=== PATIENT | female | born 1970 | race Caucasian/White ===

== ENCOUNTER → 2016-10-27 | Outpatient (CLI) | payer BC ==
--- NOTE | 2016-10-28 09:14 | NM ---
EXAM DESCRIPTION: NM BONE SCAN WHOLE BODY CLINICAL HISTORY: 46 y/o F, THORASIC SPINE PAIN COMPARISON: December 21, 2012 TECHNIQUE: Whole body bone scan was performed after the patient was administered 28 mCi technetium 99 M MDP. FINDINGS: There is focal uptake noted within the thoracic spine at the level of what is likely T12 through L3. No additional abnormal uptake within the osseous structures or soft tissues on today's study. IMPRESSION: Subtle increase in radiotracer activity within the region of patient's multilevel fusion from T10 through L3. This can be seen in setting of hardware loosening. Recommend radiographs for correlation. No additional abnormal uptake. Electronically signed by: Ney Etienne MD 10/28/2016 09:13
== END | disposition home or self-care (01) ==
LOC: NM 09:12
PROVIDERS: ATTEND Family Medicine
DX: M54.6 Pain in thoracic spine (principal)

== ENCOUNTER → 2017-01-11 | Outpatient (CLI) | payer BC, SELFPAY ==
--- NOTE | 2017-01-12 11:12 | MRI ---
EXAM DESCRIPTION: Lumbar Spine w/o Contrast CLINICAL HISTORY: LUMBER NON UNION COMPARISON: None Available. TECHNIQUE: MRI of the lumbar spine is performed according to our usual protocol with axial and sagittal multi sequence imaging. FINDINGS: Patient is status post fusion from the lower thoracic spine through L3. Marrow signal and vertebral body height are unremarkable. The conus is poorly visualized. L1-2: Thecal sac is widely patent. No spinal canal or neuroforaminal narrowing. L2-3: Thecal sac is widely patent. No spinal canal or neuroforaminal narrowing. L3-4: Thecal sac is widely patent. No spinal canal or neuroforaminal narrowing. L4-5: Mild disc desiccation and height loss. 2 mm circumferential disc bulge. No spinal canal or neuroforaminal narrowing. L5-S1: Moderate disc desiccation and height loss. Endplate edema noted. Right lateral recess annular tear. The midline diameter of the spinal canal is adequate at 15 mm. Mild bilateral neuroforaminal narrowing, right greater left. IMPRESSION: 1. Today's exam demonstrates multilevel fusion through L3. 2. Today's exam demonstrates no spinal canal narrowing at any level. 3. There is disc desiccation at L4-5 and L5-S1. This is most pronounced at L5-S1. In addition there is an annular tear at L5-S1. 4. Bilateral neuroforaminal narrowing noted only at one level, L5-S1. Electronically signed by: Ney Etienne MD 01/12/2017 11:12 AM CDT
--- NOTE | 2017-01-12 11:34 | CT ---
EXAM DESCRIPTION: Thoracic Spine CLINICAL HISTORY: 46 years Female, OTHER COMPLICATIONS OF PROCEDURES COMPARISON: None. TECHNIQUE: This exam was performed according to our departmental dose-optimization program, which includes automated exposure control, adjustment of the mA and/or kV according to patient size and/or use of iterative reconstruction technique. FINDINGS: CT of the thoracic spine without contrast with MPR reformatted images and volume rendered images were obtained. There is internal fixation of the lower thoracic spine with pedicle screws and vertical links at T10, T11, and T12, with additional internal fixation in the lumbar spine at L2 and L3. A single pedicle screw on the right at the L1 level with evidence of superior endplate fracture and mild compression deformity is evident with a tiny cleft in the superior endplate to the right of midline noted with very little retropulsed bone on the left side evident at the anterior aspect of the spinal canal which remains adequate. No significant curvature of the spine on coronal imaging is evident. The thoracic spine above the T10 level is normal in appearance without additional compression deformities. IMPRESSION: 1. Radius internal fixation of the lower thoracic and upper lumbar spine bridging a mild superior endplate left-sided compression deformity of L1 with residual cleft or lucency at the fracture line along the left side of the superior endplate. 2. Satisfactory alignment of the remainder of the spine with no significant compromise of the spinal canal with pedicle screws noted at all levels from T10 through L3 with only a right-sided pedicle screw at the L1 level. Electronically signed by: Chet Clayton MD 01/12/2017 11:33 AM CDT
== END | disposition home or self-care (01) ==
LOC: CT 13:28
PROVIDERS: ATTEND Specialist
DX: M51.37 Other intervertebral disc degeneration, lumbosacral region (principal); M48.06 Spinal stenosis, lumbar region

== ENCOUNTER → 2017-08-02 | Outpatient (CLI) | payer BC ==
--- NOTE | 2017-08-03 13:51 | MAM ---
EXAM DESCRIPTION: 3D Screening BILATERAL CLINICAL HISTORY: 47 yearsFemaleSCREENING no complaints. No family history breast cancer. Postmenopausal. Currently on HRT. Bilateral breast augmentation. COMPARISON: 2-D digital screening bilateral study 07/27/2015 and 07/21/2014. No prior reports available. TECHNIQUE: Bilateral digital screening. CC and MLO projection full-field, 2-D images. Bilateral Bladimir implant displacement images, CC and MLO full-field projections, 3-D tomosynthesis. CAD utilized on 2-D images. FINDINGS: The breast parenchymal density pattern is: Heterogeneously dense breast tissue, which may obscure small masses. No skin thickening or nipple retraction bilaterally. Again demonstrated are multiple well-circumscribed masses with density similar to the surrounding soft tissues and fibroglandular tissues. Not necessarily associated with microcalcifications. Radiolucency abutting the márquez. These are larger in the right breast than the left breast. These most likely represent cysts. Bilateral saline time subpectoral implants. Implant capsules appear intact where seen. No new focal, stellate mass or density no new focal asymmetry, and no suspicious microcalcifications bilaterally IMPRESSION: BI-RADS CATEGORY: 2 - BENIGN FINDINGS. FOLLOW UP: Routine digital bilateral screening, one year interval from July 2017. Written communication explaining the IMPRESSION and follow-up, will be mailed to the patient and referring health care provider. According to the [employer], yearly mammograms are recommended starting at age 40 and continuing as long as a woman is in good health. Any breast change noted on a breast self-exam should be reported promptly to the patient's healthcare provider. Breast MRI is recommended for women with an approximately 20-25% or greater lifetime risk of breast cancer, including women with a strong family history of breast or ovarian cancer and women who have been treated for Hodgkin's disease. A negative mammographic report should not delay tissue diagnosis in patients with significant clinical history or physical findings. Extremely dense breast tissue limits the sensitivity of digital mammography. Electronically signed by: Warren Pascual MD 08/03/2017 1:50 PM [facility]
== END ==
LOC: MAMMO 10:46
PROVIDERS: ATTEND Obstetrics & Gynecology
DX: Z12.31 Encounter for screening mammogram for malignant neoplasm of breast (principal)
CPT/HCPCS: 77063; G0202

== ENCOUNTER → 2017-12-13 | Outpatient (CLI) | payer BC | LOC: GMAL 11:00 | PROVIDERS: ATTEND Family Medicine | DX: Z00.00 Encounter for general adult medical examination without abnormal findings (principal) ==

== ENCOUNTER → 2018-03-20 | Outpatient (CLI) | payer BC | LOC: LAB.O 08:35 | PROVIDERS: ATTEND Family Medicine | DX: R53.82 Chronic fatigue, unspecified (principal); E34.9 Endocrine disorder, unspecified; E29.1 Testicular hypofunction ==

== ENCOUNTER → 2018-04-05 | Outpatient (CLI) | payer BC | LOC: LAB.O 14:17 | PROVIDERS: ATTEND Family Medicine | DX: E34.9 Endocrine disorder, unspecified (principal) ==

== ENCOUNTER → 2018-06-14 | Outpatient (CLI) | payer BC | LOC: GMAL 10:36 | PROVIDERS: ATTEND Family Medicine | DX: D50.8 Other iron deficiency anemias (principal) ==

== ENCOUNTER → 2018-08-03 | Outpatient (CLI) | payer BC ==
--- NOTE | 2018-08-06 15:30 | MAM ---
EXAM DESCRIPTION: 3D Screening BILATERAL : Digital Mammography. CLINICAL HISTORY: 48 years Female SCREENING . No complaints. No personal or family history of breast cancer. Childbirth. Postmenopausal. Currently on HRT use. Bilateral breast augmentation. History of breast cysts. Lifetime risk of developing breast cancer (Tyrer-Cuzick model)(%): 11.4. COMPARISON: Bilateral screening digital breast tomosynthesis. 08/02/2017. TECHNIQUE: Bilateral CC and MLO projection full-field images, with Bladimir Implant Displacement digital tomosynthesis mammographic technique. Bilateral 2-D digital full-field images, MLO and CC projections, non-displaced. CAD Bilateral digital 2-D full-field MLO images. CAD not available for tomosynthesis or 2-D images. FINDINGS: The breast parenchymal density pattern is: Scattered areas of fibroglandular density. No skin thickening or nipple retraction. Mass density similar to the surrounding fibroglandular tissues in the anterior mid right breast approximately 3.7 cm long axis with circumscribed margins. Similar size on the prior study. Other similar appearing mass densities in the right breast have decreased in size. Bilateral solitary microcalcifications. Similar appearing mass densities with well-circumscribed margins in the left breast have also decreased in size. Bilateral saline intramuscular implants. Borders intact where seen. Bilateral axillary lymph nodes.. No new focal, stellate mass or density, focal asymmetry , and no suspicious microcalcifications bilaterally. IMPRESSION: Benign exam. BIRAD CATEGORY: 2 BENIGN FINDINGS. RECOMMENDATIONS: FOLLOW UP: Routine digital bilateral mammographic screening, one year interval from July 2018. Written communication explaining the IMPRESSION and follow-up, will be mailed to the patient and referring health care provider. According to the [employer], yearly mammograms are recommended starting at age 40 and continuing as long as a woman is in good health. Any breast change noted on a breast self-exam should be reported promptly to the patient's healthcare provider. Breast MRI is recommended for women with an approximately 20-25% or greater lifetime risk of breast cancer, including women with a strong family history of breast or ovarian cancer and women who have been treated for Hodgkin's disease. A negative mammographic report should not delay tissue diagnosis in patients with significant clinical history or physical findings. Extremely dense breast tissue limits the sensitivity of digital mammography. Electronically signed by: Warren Pascual MD 08/06/2018 3:28 PM [facility]
== END ==
LOC: MAMMO 08:30
PROVIDERS: ATTEND Family Medicine
DX: Z12.31 Encounter for screening mammogram for malignant neoplasm of breast (principal)

== ENCOUNTER → 2018-09-14 | Outpatient (CLI) | payer BC | LOC: GMAL 10:53 | PROVIDERS: ATTEND Family Medicine | DX: D50.8 Other iron deficiency anemias (principal); E55.9 Vitamin D deficiency, unspecified ==

== ENCOUNTER → 2019-01-03 | Outpatient (CLI) | payer BC | LOC: LAB.O 08:56 | PROVIDERS: ATTEND Family Medicine | DX: M25.50 Pain in unspecified joint (principal) ==

== ENCOUNTER → 2019-08-06 | Outpatient (CLI) | payer BC, OTHER ==
--- NOTE | 2019-08-07 16:51 | MAM ---
EXAM DESCRIPTION: 3D Screening BILATERAL : Digital Mammography. CLINICAL HISTORY: 49 years Female ANNUAL SCREENING . No complaints. No personal or family history of breast cancer. Menarche age 14. Childbirth age 31. Postmenopausal age 40. Currently on HRT. Bilateral breast augmentation.. Lifetime risk of developing breast cancer (Tyrer-Cuzick model)(%): 11.3. COMPARISON: Bilateral screening digital breast tomosynthesis 03 August 2018. And 02 August 2017. TECHNIQUE: Bilateral CC and MLO projection full-field images, with Bladimir Implant Displacement digital tomosynthesis mammographic technique. Bilateral 2-D digital full-field images, MLO and CC projections, non-displaced. Bilateral digital 2-D full-field MLO images. implant displaced projection. CAD not available for tomosynthesis or 2-D images. FINDINGS: The breast parenchymal density pattern is: Heterogeneously dense breast tissue, which may obscure small masses. No skin thickening or nipple retraction. Bilateral axillary lymph nodes. Bilateral submuscular silicone based implants. Capsules are smooth where seen. Solitary microcalcifications bilaterally. Relatively well-circumscribed mass almost 2 cm in diameter in the retroareolar right breast has decreased in size since the prior study. New masses in the retroareolar left breast and in the upper outer quadrant left breast posterior third. No new focal, stellate mass or density, focal asymmetry , and no suspicious microcalcifications left breast. IMPRESSION: BI-RADS CATEGORY: 0 - INCOMPLETE- Need additional imaging evaluation. FOLLOW-UP: Recall for additional imaging: Bilateral directed breast ultrasound of the regions of interest.. Written communication concerning the IMPRESSION and Follow-up, will be mailed to the patient and referring health care provider. Electronically signed by: Warren Pascual MD 08/07/2019 4:50 PM [facility]
== END | disposition home or self-care (01) ==
LOC: MAMMO 08:08
PROVIDERS: ATTEND Family Medicine
DX: Z12.31 Encounter for screening mammogram for malignant neoplasm of breast (principal)

== ENCOUNTER → 2019-08-26 | Outpatient (CLI) | payer OTHER ==
--- NOTE | 2019-08-26 17:16 | US ---
EXAM DESCRIPTION: Breast,Bilateral: Ultrasound. CLINICAL HISTORY: 49 yearsFemaleABNORMAL MAMMO. Bilateral mostly circumscribed breast masses. Bilateral breast implants. COMPARISON: Bilateral screening digital breast tomosynthesis 06 August 2019. TECHNIQUE: Transcutaneous scanning of the bilateral breast utilizing matos-scale and Doppler modes. Scanning performed by the planning associate ; observation by Dr. Pascual. FINDINGS: Scanning of the upper outer quadrants of the bilateral breasts. Bilateral subpectoral breast implants. Capsules appear intact where seen. Breast tissue bilaterally is mostly fibroglandular with minimal fatty tissue. Bilobed anechoic structure with circumscribed margins in the upper-outer quadrant of the right breast measures 8.8 x 4.0 mm, wider than tall orientation and posterior acoustic enhancement. Consistent with a cyst. A second cyst measures 1 5.2 x 4.4 mm. A third cyst more superior and lateral measures 1.2 cm x 1.3 cm. No dominant solid mass or large calcifications. No overlying skin changes. Left breast is a similar appearance to the right breast. The largest cyst measures 1.6 x 1.8 cm. A third cyst measures 1.8 x 1.6 cm. No dominant solid mass or large calcifications. No overlying skin changes. IMPRESSION: Benign exam. Bilateral fibroglandular tissues. Multiple cysts. Visualized implant capsules intact BIRAD CATEGORY: 2 BENIGN FINDINGS. RECOMMENDATIONS: FOLLOW UP: Routine digital bilateral mammographic screening, one year interval from July 2019. Written communication explaining the IMPRESSION and follow-up, will be mailed to the patient and referring health care provider. The FINDINGS and the FOLLOW-UP plan were reviewed in person with the patient after the examination. According to the [employer], yearly mammograms are recommended starting at age 40 and continuing as long as a woman is in good health. Any breast change noted on a breast self-exam should be reported promptly to the patient's healthcare provider. Breast MRI is recommended for women with an approximately 20-25% or greater lifetime risk of breast cancer, including women with a strong family history of breast or ovarian cancer and women who have been treated for Hodgkin's disease. A negative mammographic report should not delay tissue diagnosis in patients with significant clinical history or physical findings. Extremely dense breast tissue limits the sensitivity of digital mammography. Electronically signed by: Warren Pascual MD 08/26/2019 5:14 PM [facility]
== END ==
LOC: MAMMO 14:52
PROVIDERS: ATTEND Nurse Practitioner Family
DX: R92.2 Inconclusive mammogram (principal)

== ENCOUNTER 2020-04-22 11:33 | Emergency (ER) | payer OTHER ==
[2020-04-22 11:52] VITALS: TEMP 97.6
[2020-04-22] MEDS ORDERED: CYCLOBENZAPRINE HCL 5 MG TAB PO ONE (11:55)
[2020-04-22] MEDS ORDERED: predniSONE 20 MG TAB PO ONE (11:55)
--- NOTE | 2020-04-22 12:07 | ED.PDOC ---
History of Present Illness - General Chief Complaint: General Stated Complaint: right hip pain Time Seen by Provider: 04/22/20 11:39 Source: patient Exam Limitations: no limitations - History of Present Illness Initial Comments: The patient is a 49-year-old female presents emergency room secondary to pain in her right hip and low back that extends down the posterior aspect of her leg with shortening for the last 5 to 7 days or so. No real history of trauma. She has had surgery on her low back in the distant past. No other neurological changes. No rash. She did see with our practice which seemed to make it a little worse. The patient has done some reading and believes she may have piriformis syndrome. The symptoms are fairly consistent. They are associa miriam with some muscle spasm in the gluteal area. She has been trying to do some stretching. She has been trying to do some topical heat. She is tender to palpation over the piriformis muscle but also over the paraspinal musculature adjacent to L4-L5. This is again on the right. No pain over the greater trochanter. Minimal discomfort with passive range of motion of the hip. No palpable deformity. The patient denies being a diabetic. Timing/Duration: 1 week Severity: moderate Improving Factors: movement Worsening Factors: movement Associated Symptoms: denies symptoms Allergies/Adverse Reactions: Allergies Morphine Allergy (Unverified 12/21/12 05:42) tape Allergy (Mild, Uncoded 12/21/12 05:42) Home Medications: Ambulatory Orders Cyclobenzaprine HCl [Flexeril] 5 mg PO TID PRN #60 tab 04/22/20 predniSONE [Prednisone] 40 mg PO DAILY #10 tab 04/22/20 Review of Systems - Review of Systems Constitutional: States: no symptoms reported EENTM: States: no symptoms reported Respiratory: States: no symptoms reported Cardiology: States: no symptoms reported Gastrointestinal/Abdominal: States: no symptoms reported Genitourinary: States: no symptoms reported Musculoskeletal: States: see HPI Skin: States: no symptoms reported Neurological: States: see HPI Endocrine: States: no symptoms reported All other Systems: No Change from Baseline Past Medical History (General) - Patient Medical History Hx of COPD: No Hx Cardiac Disorders: No Hx Hypertension: Yes Hx Diabetes: No - Activities of Daily Living Hospice Agency (if applicable):: None - Female History Patient : No Family Medical History - Family History Mother Family History: Unknown Physical Exam - Physical Exam General Appearance: Alert, Comfortable, No apparent distress Eye Exam: bilateral normal Ears, Nose, Throat: hearing grossly normal, normal pharynx Neck: supple Respiratory: no respiratory distress, no accessory muscle use Cardiovascular/Chest: normal peripheral pulses, no edema Peripheral Pulses: dorsalis pedis,right: 2+, dorsalis pedis,left: 2+ Gastrointestinal/Abdominal: non tender, soft Rectal Exam: other - Pelvis is stable. Back Exam: no vertebral tenderness, muscle spasm, other - See history of present illness Extremity: normal range of motion, no pedal edema, no calf tenderness, normal capillary refill, other - See history of present illness Neurologic: joiner II-XII nml as tested, alert, normal mood/affect, oriented x 3 Skin Exam: normal color Comments: Vital Signs - 24 hr 04/22/20 11:51 Temperature 97.6 F Pulse Rate [ 66 brachial] Respiratory 18 Rate Blood Pressure 166/100 [Left Arm] O2 Sat by Pulse 99 Oximetry Progress - Progress Progress: 04/22/20 12:08 The patient is a 49-year-old female presented emergency room with pain to the right low back and gluteal area but does have features of sciatica. The source may be piriformis syndrome but it may also be coming from the L4-L5 nerve root. There is palpable muscle spasm. Either way the patient is going to be placed on Flexeril as a muscle relaxer and prednisone as a steroid. She does need to continue to do stretching exercises. Topical heat may also prove beneficial. She needs to follow back up with her primary care doctor in 5 to 7 days. ER warnings are given for any significant worsening. Additional imaging not deemed beneficial at this point. henna nallely [id number] Departure - Departure Clinical Impression: Low back pain with sciatica Qualifiers: Chronicity: acute Back pain laterality: right Sciatica laterality: sciatica of right side Qualified Code(s): M54.41 - Lumbago with sciatica, right side Disposition: Discharge to Home or Self Care Condition: Fair Departure Forms: ED Discharge - Pt. Copy, Patient Portal Self Enrollment Instructions: Sciatica (DC), Sciatica Exercises Diet: regular diet Activity: increase activity as tolerated Referrals: Perico Coyne III, MD [Primary Care Provider] - 1-2 Weeks Prescriptions: Cyclobenzaprine HCl [Flexeril] 5 mg PO TID PRN #60 tab PRN Reason: Muscle Spasms predniSONE [Prednisone] 40 mg PO DAILY #10 tab Home Medications: Ambulatory Orders Cyclobenzaprine HCl [Flexeril] 5 mg PO TID PRN #60 tab 04/22/20 predniSONE [Prednisone] 40 mg PO DAILY #10 tab 04/22/20 Additional Instructions: The patient is a 49-year-old female presented emergency room with pain to the right low back and gluteal area but does have features of sciatica. The source may be piriformis syndrome but it may also be coming from the L4-L5 nerve root. There is palpable muscle spasm. Either way the patient is going to be placed on Flexeril as a muscle relaxer and prednisone as a steroid. She does need to continue to do stretching exercises. Topical heat may also prove beneficial. She needs to follow back up with her primary care doctor in 5 to 7 days. ER warnings are given for any significant worsening.
[2020-04-22] MEDS ORDERED: CYCLOBENZAPRINE HCL 10 MG TAB ONE (12:15)
[2020-04-22 12:28] VITALS: BP 142/87; O2SAT 100
== END 2020-04-22 12:20 | disposition home or self-care (01) ==
LOC: ER 11:33
DX: M54.41 Lumbago with sciatica, right side (principal)

== ENCOUNTER → 2020-05-04 | Outpatient (CLI) | payer OTHER ==
--- NOTE | 2020-05-04 15:47 | MRI ---
EXAM DESCRIPTION: Lumbar Spine w/o Contrast : Magnetic Resonance Imaging. CLINICAL HISTORY: LOW BACK PAIN . Upper lumbar and lower thoracic hardware removal. COMPARISON: Lumbar MRI with and without contrast December 2016 prior to hardware removal. TECHNIQUE: Multiplanar, multiple standard sequences, non contrast MRI, lumbar spine. FINDINGS: L5-S1: The disc is well visualized on axial T2 series 501, image 3. L5-S1: Disc desiccation with mild to moderate endplate reactive changes to the right of midline. Chronic disc spur bulge into the right of midline now a large 6 mm protrusion impressing on the thecal sac, and displacing the descending right S1 nerve above the subarticular recess. Minimal thickening of the flavum ligaments. AP canal diameter 10 mm. Borderline right foraminal stenosis is stable with moderate to severe left foraminal narrowing also stable. L4-L5: Disc desiccation with disc space maintained. No significant bulging. Hypertrophic changes in the flavum ligaments and facet joints (canal elements). AP canal diameter 13 mm. Bilateral mild to moderate foraminal narrowing with no nerve impingement. L3-4 and L2-3 discs normal signal with disc space is maintained. Canal elements unremarkable. Canal and foramina are patent. Tracks in the bilateral pedicles at L2 and L3 from prior prior fusion hardware. L1-L2: Prior posterior decompression with disc space maintained and minimal disc desiccation. Canal elements with partial resection. Bilateral foramina are patent. Tract in the right L1 pedicle from prior hardware. Conus terminates at L1. T12-L1: Central depression of the superior L2 endplate with posterior endplate reactive changes. Minimal posterior bulging could represent retroareolar portion compression type injury. Approximately 2 mm posterior to the L1 endplate with no significant disc bulge. Mild narrowing left foramen with right foramen patent. Tracks in the bilateral T12 pedicles from prior hardware. Canal elements are negative. T11-12: Normal signal in the disc with no disc bulge. Minimal concavity in the superior L1 endplate. No canal or foraminal stenosis. Plaque in the right T11 pedicle from prior hardware. Circumscribed hyperintense T1 and T2 hemangioma in the T11 vertebral body. No magnetic metallic distortion from residual hardware. Thoracolumbar dextroscoliosis and lumbosacral levoscoliosis. Paravertebral soft tissues minimal muscle atrophy. Distal cord normal signal and caliber. Otherwise normal marrow signal in the remaining vertebral bodies and the posterior elements. Vertebral bodies are not compressed at any level. IMPRESSION: 1. Prior lumbar fusion hardware for stabilization in the thoracolumbar spine is been removed. Minimal compression injury of the superior L1 endplate is stable since the prior study. Stable T12-L1 posterior decompression. No magnetic susceptibility artifact from residual hardware. 2. New protrusion of disc with disc osteophyte complex right posterior L5-S1 with right paracentral canal stenosis and impingement of the descending right S1 nerve. Stable borderline right foraminal stenosis. Electronically signed by: Warren Pascual MD 05/04/2020 3:46 PM CDT
== END ==
LOC: MRI 09:15
PROVIDERS: ATTEND Family Medicine
DX: M48.56XS Collapsed vertebra, not elsewhere classified, lumbar region, sequela of fracture (principal); M51.27 Other intervertebral disc displacement, lumbosacral region; M25.78 Osteophyte, vertebrae; M48.07 Spinal stenosis, lumbosacral region; Z98.1 Arthrodesis status

== ENCOUNTER 2020-06-08 05:24 | Day surgery (SDC) | payer OTHER ==
[2020-06-08] MEDS ORDERED: BETAMETHASONE ACETATE/BETAMETH 6 MG/ML VIAL IM ONE ×3 (07:21→08:44)
[2020-06-08] MEDS ORDERED: BUPIVACAINE 0.5% 30 ML VIAL INJ ONE ×3 (07:22→08:45)
[2020-06-08] MEDS ORDERED: LIDOCAINE 1% 50 ML VIAL INJ ONE (07:22)
[2020-06-08] MEDS ORDERED: LIDOCAINE 1% 10 ML VIAL INJ ONE ×2 (08:22→08:46)
[2020-06-08] MEDS ORDERED: DEXAMETHASONE INJ 10 MG/ML VIAL IM ONE (08:44)
--- NOTE | 2020-06-09 08:36 | RAD ---
EXAM DESCRIPTION: Fluoroscopy Up to 1Hr CLINICAL HISTORY: 50 years Female, S1 INJECTION COMPARISON: None. FINDINGS: Lateral spot film image of the sacrum obtained during procedure. Fluoroscopy dose equals 8.25 mg. Fluoroscopy time equals 21.1 seconds. IMPRESSION: Single lateral spot film image obtained during SI joint injection. Electronically signed by: Eddy Pablo MD 06/09/2020 8:34 AM CDT
== END 2020-06-08 09:15 | disposition home or self-care (01) ==
LOC: AMB 05:24
PROVIDERS: ATTEND Family Medicine Sports Medicine
DX: M54.5 Low back pain (principal); M51.17 Intervertebral disc disorders with radiculopathy, lumbosacral region; M48.07 Spinal stenosis, lumbosacral region; G54.9 Nerve root and plexus disorder, unspecified; Z79.899 Other long term (current) drug therapy; Z79.891 Long term (current) use of opiate analgesic
CPT/HCPCS: 64483; 76000; J1100

== ENCOUNTER 2020-06-29 05:10 | Day surgery (SDC) | payer OTHER ==
[2020-06-29] MEDS ORDERED: BUPIVACAINE 0.5% 30 ML VIAL INJ ONE ×2 (07:09→09:35)
[2020-06-29] MEDS ORDERED: LIDOCAINE 1% 10 ML VIAL INJ ONE ×2 (07:09→09:35)
[2020-06-29] MEDS ORDERED: DEXAMETHASONE INJ 10 MG/ML VIAL IV ONE (09:40)
[2020-06-29] MEDS ORDERED: DEXAMETHASONE INJ 10 MG/ML VIAL ONE (10:22)
== END 2020-06-29 10:00 | disposition home or self-care (01) ==
LOC: AMB 05:10
PROVIDERS: ATTEND Family Medicine Sports Medicine
DX: M54.16 Radiculopathy, lumbar region (principal); M85.80 Other specified disorders of bone density and structure, unspecified site; Z79.899 Other long term (current) drug therapy
CPT/HCPCS: 62323; 76000; J1100

== ENCOUNTER → 2020-11-16 | Outpatient (CLI) | payer OTHER ==
--- NOTE | 2020-11-18 15:01 | MAM ---
EXAM DESCRIPTION: 3D Screening BILATERAL : Digital Mammography. CLINICAL HISTORY: 50 years Female SCREEN no complaints and no family history of breast cancer. Multiple breast cysts on prior ultrasound. Menarche age 14. Childbirth age 31. Menopause age 40. Current HRT.. Lifetime risk of developing breast cancer (Tyrer-Cuzick model)(%): 11.3. COMPARISON: Bilateral screening digital breast tomosynthesis July 2019 and bilateral directed breast ultrasound August 2019 TECHNIQUE: Bilateral CC and MLO projection full-field images, with Bladimir Implant Displacement digital tomosynthesis mammographic technique. Bilateral 2-D digital full-field images, MLO and CC projections, non-displaced. Bilateral digital 2-D full-field MLO images. ; Implant displaced technique. CAD available for 2-D images. FINDINGS: The breast parenchymal density pattern is: Scattered areas of fibroglandular density. Bilateral retro-muscular breast implants silicone derivative. Capsules appear intact where seen and stable since the prior study. Axillary nodes. Solitary microcalcifications. Groups of benign type calcifications stable.. No skin thickening or nipple retraction No new focal, stellate mass or density, focal asymmetry , and no suspicious microcalcifications bilaterally. Stable mammograms compared to prior study. IMPRESSION: Benign exam. BIRAD CATEGORY: 2 BENIGN FINDINGS. RECOMMENDATIONS: FOLLOW UP: Routine digital bilateral mammographic screening, one year interval from November 2020. Written communication explaining the IMPRESSION and follow-up, will be mailed to the patient and referring health care provider. According to the [employer], yearly mammograms are recommended starting at age 40 and continuing as long as a woman is in good health. Any breast change noted on a breast self-exam should be reported promptly to the patient's healthcare provider. Breast MRI is recommended for women with an approximately 20-25% or greater lifetime risk of breast cancer, including women with a strong family history of breast or ovarian cancer and women who have been treated for Hodgkin's disease. A negative mammographic report should not delay tissue diagnosis in patients with significant clinical history or physical findings. Extremely dense breast tissue limits the sensitivity of digital mammography. Electronically signed by: Warren Pascual MD 11/18/2020 3:[address] [facility]
== END ==
LOC: MAMMO 12:58
PROVIDERS: ATTEND Family Medicine
DX: Z12.31 Encounter for screening mammogram for malignant neoplasm of breast (principal)